=== PATIENT | female | born 1985 | race Caucasian/White ===

== ENCOUNTER → 2018-05-25 15:14 | Outpatient (CLI) | payer SELFPAY ==
[2018-05-25 17:45] LABS: Hematocrit 35.9 % (37-47); Hemoglobin 12.1 g/dl (12.0-15.0); Mean Corp Hgb Conc 33.7 g/gl (32-36); Mean Corpuscular Hgb 29.3 pg (27.0-32.0); Mean Corpuscular Volume 86.9 fL (81-99); Mean Platelet Vol. 9.3 fl (6.2-12.0); Platelet Count 341 K/mm3 (150-450); RBC Distribution Width CV 12.4 % (11.6-14.6); RBC Distribution Width SD 38.5 fl (35.1-43.9); Red Blood Count 4.13 M/mm3 (4.2-5.4); White Blood Count 8.4 K/mm3 (4.4-11.0)
[2018-05-25 18:01] LABS: Ferritin 12 ng/mL (8-252); Free T3 2.4 pg/mL (2.18-3.98); Iron 36 ug/dL (50-170); Iron Binding Capacity,Total 398 ug/dL (250-450); Scan Indicated on CBC? Y/N NO; T4 Free Direct 0.77 ng/dL (0.76-1.46); Thyroid Stim Hormone (TSH) 0.78 uIU/mL (0.358-3.74)
[2018-05-26 10:00] LABS: Vitamin B12 607 pg/mL (211-911)
== END ==
PROVIDERS: Family Provider Family Medicine; PCP Family Medicine; Visit Provider Psychiatry & Neurology Psychiatry
DX: D64.9 Anemia, unspecified (principal); E03.9 Hypothyroidism, unspecified
CPT/HCPCS: 36415; 82607; 82728; 82746; 83540; 83550; 84439; 84443; 84481; 85027

== ENCOUNTER → 2018-06-23 11:42 | Outpatient (CLI) | payer SELFPAY ==
[2018-06-25 08:49] LABS: EBV Early Antigen IgG <9.0 U/mL (0.0-8.9); EBV-VCA IgG < 18.0 U/mL (0.0-17.9)
== END ==
PROVIDERS: Family Provider Family Medicine; PCP Family Medicine; Visit Provider Family Medicine
DX: R53.83 Other fatigue (principal)
CPT/HCPCS: 36415; 86663; 86665

== ENCOUNTER → 2018-06-26 13:57 | Outpatient (CLI) | payer SELFPAY ==
--- NOTE | 2018-06-26 13:59 | US_ITS ---
STUDY: THYROID ULTRASOUND REASON FOR EXAM: Female, 33 years old. Goiter TECHNIQUE: Ultrasound evaluation of the thyroid was performed with real-time and static do-scale imaging. COMPARISON: None. FINDINGS: RIGHT LOBE: The right lobe of the thyroid gland measures 5.4 x 1.9 x 1.6 cm. There is a homogeneous echotexture. There are several hypoechoic subcentimeter nodules likely cystic in nature measuring between 2 to 6 mm. LEFT LOBE: The left lobe of the thyroid gland measures 5.2 x 2.1 x 1.5 cm. There is a homogeneous echotexture. There are several hypoechoic subcentimeter nodules likely cystic in nature measuring 2 to 3 mm. ISTHMUS: The isthmus measures 2 mm . There is a soft tissue 6 x 8 mm nodule superior to the left thyroid. US/Thyroid IMPRESSION: Small subcentimeter cystic nodules laterally of the thyroid. Subcentimeter soft tissue nodule superior to the left thyroid. Correlate with CT if needed. Electronically Signed: Reed Louise DO at 22:47 EDT Tel [phone], Service support ,
== END ==
PROVIDERS: Family Provider Family Medicine; PCP Family Medicine; Visit Provider Family Medicine
DX: E04.9 Nontoxic goiter, unspecified (principal)
CPT/HCPCS: 76536

== ENCOUNTER → 2019-01-09 14:22 | Outpatient (CLI) | payer OTHER, SELFPAY ==
[2019-01-09 13:22] VITALS: BMI 30.2
[2019-01-09 15:39] LABS: Uric Acid 3.3 mg/dL (2.6-6.0)
== END ==
PROVIDERS: Family Provider Family Medicine; PCP Family Medicine; Referring Provider Family Medicine; Visit Provider Family Medicine
DX: M79.676 Pain in unspecified toe(s) (principal); R23.2 Flushing; R61 Generalized hyperhidrosis
CPT/HCPCS: 36415; 84550

== ENCOUNTER → 2019-01-11 09:35 | Outpatient (CLI) | payer OTHER, SELFPAY ==
[2019-01-09 13:22] VITALS: BMI 30.2
[2019-01-17 09:37] LABS: Epinephrine, 24Ur 5 ug/24 hr (0-20); Norepinephrine, 24Ur 32 ug/24 hr (0-135); VMA, 24UR 2.1 mg/24 hr (0.0-7.5)
[2019-01-17 11:01] LABS: Dopamine, 24Ur 278 ug/24 hr (0-510); Dopamine, UR 105 ug/L (Undefined); Epinephrine, Ur 2 ug/L (Undefined); Norepinephrine, Ur 12 ug/L (Undefined); VMA, UR 0.8 mg/L (Undefined)
== END ==
PROVIDERS: Family Provider Family Medicine; PCP Family Medicine; Referring Provider Family Medicine; Visit Provider Family Medicine
DX: R23.2 Flushing (principal); R61 Generalized hyperhidrosis
CPT/HCPCS: 82384; 84585

== ENCOUNTER 2019-01-22 14:12 | Emergency (ER) | payer OTHER, SELFPAY ==
[2019-01-09 13:22] VITALS: BMI 30.2
[2019-01-22 14:13] VITALS: BP 127/73; PULSE 86; RESP 17; TEMP 36.9; O2SAT 97; BMI 29.6
[2019-01-22 15:17] LABS: Bacteria 0 SEEN /hpf (None Seen); Mucous, Urine 0 SEEN /hpf (<or=2+); Red Blood Cells-Urine 0 SEEN /hpf (0-5); White Blood Cells 0 SEEN /hpf (0-5)
[2019-01-22 15:35] LABS: Color, Urine Yellow (Yellow); Glucose, Dipstick Normal (Normal); Ketone-Dipstick Negative (Negative); Leukocyte Esterase-Dipstick Negative /ul (Negative); Nitrite-Dipstick Negative (Negative); Occult Blood-Urine 10 /ul (Negative); Protein-Dipstick Negative (Negative); Urine Bilirubin Dipstick Negative (Negative); Urine Clarity Clear (Clear); Urine Urobilinogen Normal (Normal)
[2019-01-22 15:39] LABS: Internal QC Validated? YES +Cl - CLEAR BKGD; Pregnancy, Urine Negative Negative
--- NOTE | 2019-01-22 15:45 | ED.VISSUMM ---
- ER Visit Summary Date of Service: 01/22/19 Chief Complaint: Right flank pain History of Present Illness: The patient is a [address] Robby Stoddard. She reports she has right flank pain began approximately 2 weeks ago. States that it seemed to improve, but is worsened again over the past few days. She describes a sharp pain is 9 out of 10 with movement and 1 out of 10 at rest. She denies any recent trauma. No fall, MVA, or change in activity. She denies any nausea or vomiting. She denies diarrhea today. She does report that she had diarrhea yesterday. No blood in her stools or black tarry stools. She had frequent urination, but no dysuria. Last menstrual period was 2 weeks ago. No personal history of kidney stones. Physical Examination: Vitals: Stable. Afebrile. General: Well-nourished and well-developed. Head: Normocephalic atraumatic. Neck: Supple, no lymphadenopathy. No JVD. Nontender. Cardiovascular: Regular rate and rhythm. No murmurs. Respiratory: No respiratory distress. Clear to auscultation bilaterally. Abdominal: Soft, nontender, nondistended, normal bowel sounds. No guarding, rebound, or peritoneal signs. Back: No vertebral tenderness. Mild right CVA tenderness. Extremities: Nontender, no edema. Skin: Normal color, no rash. Neurologic: Alert and oriented ?3. Cranial nerves II through XII are intact. Normal strength and sensation. Psych: Normal affect. Test Results: UA is negative. test is negative. Emergency Department Course and Treatment: Patient refused pain and nausea medications. She is resting comfortably. Treatment Plan: Patient be discharged with naproxen. Instructed to follow-up her primary care physician 1 week if not improving. Return to the emergency department for any worsening symptoms. Disposition: To home in improved and stable condition. Impression: 1. Right flank pain, uncertain cause. This note was generated with [employer] dictation software. It may contain incorrect words, spelling, and punctuation that were not noted in review of the chart prior to signing ED Disposition - Plan for ED Patient: Disposition: Home or Assisted Living Instructions: ED Flank Pain Uncertain Cause Prescriptions: Naproxen [Naprosyn] 500 mg PO BID #14 tablet Referrals: Robby Stoddard, DO [Primary Care Provider] - 3-5 Days if not improving
[2019-01-22 15:52] LABS: Squamous Epithelial Cells - UA 0-5 SEEN /hpf (5-10)
[2019-01-22 15:54] VITALS: PULSE 88; RESP 17; O2SAT 98
== END 2019-01-22 15:55 | disposition home or self-care (01) ==
LOC: ED 14:40
PROVIDERS: Emergency Provider Emergency Medicine; Family Provider Family Medicine; PCP Family Medicine
DX: R10.9 Unspecified abdominal pain (principal); R19.7 Diarrhea, unspecified; R35.0 Frequency of micturition; Z72.0 Tobacco use; F41.9 Anxiety disorder, unspecified; Z79.899 Other long term (current) drug therapy
CPT/HCPCS: 81001; 81025; 99282

== ENCOUNTER 2022-01-04 08:46 | Outpatient (CLI) | payer SELFPAY ==
[2022-01-04 09:55] LABS: Hematocrit 34.2 % (37-47); Hemoglobin 11.3 g/dL (12.0-15.0); Mean Corpuscular Hgb 28.3 pg (27.0-32.0); Mean Corpuscular Volume 85.7 fL (81-99); Mean Platelet Vol. 8.9 fl (6.2-12.0); Platelet Count 280 K/mm3 (150-450); RBC Distribution Width SD 39.8 fl (35.1-43.9); Red Blood Count 3.99 M/mm3 (4.2-5.4); White Blood Count 5.3 K/mm3 (4.4-11.0)
[2022-01-04 10:18] LABS: Ferritin 8 ng/mL (8-252); Iron 27 ug/dL (50-170); Iron Binding Capacity,Total 418 ug/dL (250-450); PERCENT IRON SATURATION 6.5 % (15.0-55.0); Thyroid Stim Hormone (TSH) 0.91 uIU/mL (0.358-3.74)
== END 2022-01-04 23:59 | disposition home or self-care (01) ==
PROVIDERS: PCP Family Medicine; Referring Provider Psychiatry & Neurology Psychiatry; Visit Provider Psychiatry & Neurology Psychiatry
DX: E61.1 Iron deficiency (principal); E03.9 Hypothyroidism, unspecified
CPT/HCPCS: 36415; 82728; 83540; 83550; 84443; 85027

== ENCOUNTER → 2023-10-04 | Outpatient (CLI) | payer SELFPAY ==
[2023-10-04 15:52] LABS: Anion Gap 5 (5-15); BUN 12 mg/dL (7-18); BUN/Creat Ratio 18.8 RATIO (10-20); Calcium,Total 9.2 mg/dL (8.5-10.1); Chloride 105 mmol/L (98-107); Creatinine, Serum 0.64 mg/dL (0.55-1.02); EST Glomerular Filtration Rate 110 mL/min (>60); Est Glom Filt Rate - Afr Amer 133 mL/min (>60); Glucose 152 mg/dL (74-106); Potassium 4.6 mmol/L (3.5-5.1); Sodium Level 141 mmol/L (136-145); T4 Free Direct 0.73 ng/dL (0.76-1.46); Thyroid Stim Hormone (TSH) 0.79 uIU/mL (0.358-3.74)
== END | disposition home or self-care (01) ==
LOC: BIMLAB 13:56
PROVIDERS: PCP Family Medicine; Referring Provider Family Medicine; Visit Provider Family Medicine
DX: R53.83 Other fatigue (principal)
CPT/HCPCS: 36415; 80048; 84439; 84443

== ENCOUNTER → 2023-10-24 | Outpatient (CLI) | payer OTHER, SELFPAY ==
--- OUTSIDE RECORDS SUMMARY | 2023-10-24 10:13 | XMS RPT_ITS | CCD ---
Author Name Unknown Address [address] [place] [address] Organization [facility] Care Team Providers Care Belt Picker Name Role Phone SHERALETHA ZAID E Unavailable Unavailable SHEROCK, ZAID E Unavailable Unavailable BROWN ANY R Unavailable Unavailable SHEROCK, ZAID E Unavailable Unavailable SHEROCK, ZAID E Unavailable Unavailable BROWN, ANY R Unavailable Unavailable BROWN, ANY R Unavailable Unavailable Problems Active Problems Problem Classification Problem Date Documented Da te Episodic/Chronic Unclassified (1 source) Unknown / UNK(Unknown) Onset: 04-21-2017 Past or Other Problems Problem Classification Problem Date Documented Da te Episodic/Chronic Unclassified (1 source) NONREACTIVE NST OBLIQUE LIE Onset: 04-21-2017 Results Test Name Value Interpretation Reference Range Facil ity Encounters Encounter Date Encounter Type Care Provider Facility Start: 04-23-2017 End: 04-25-2017 Evaluation and management of inpatient ZAID EASTMAN Facility:[facility] Start: 04-21-2017 End: 04-21-2017 Ambulatory ZAID EASTMAN Facility:[facility] [place] Summary Purpose Family History No Family History Records FoundNo Family History Records Found Advance Directives No Advanced Directives Records FoundNo Advanced Directives Records Found Additional Source Comments INFORMATION SOURCE (unrecogn ized section and content) DATE CREATED AUTHOR AUTHOR'S ORGANIZ ATION 04/12/2018 [facility] FOR RECORDS PERTAINING TO PATIENTS WHO ARE OR HAVE BEEN ENROLLED IN A CHEMICAL DEPENDENCY/SUBSTANCEABUSE PROGRAM, SOME INFORMATION MAY BE OMITTED. This clinical summary was aggregated from multiple sources. Caution should be exercised in using it in the provision of clinical care. This summary normalizes information from multiple sources, and as a consequence, information in this document may materially change the coding, format and clinical context of patient data. In addition, data may be omitted in some cases. CLINICAL DECISIONS SHOULD BE BASED ON THE PRIMARY CLINICAL RECORDS. [facility] [employer] [facility]. provides no warranty or guarantee of the accuracy or completeness of information in this document.
[2023-10-24 14:13] LABS: Hemoglobin A1c 5.6 % (3.8-5.6)
== END | disposition home or self-care (01) ==
PROVIDERS: PCP Family Medicine; Referring Provider Family Medicine; Visit Provider Family Medicine
DX: R73.9 Hyperglycemia, unspecified (principal)
CPT/HCPCS: 36415; 83036

== ENCOUNTER → 2024-08-14 | Outpatient (CLI) | payer OTHER, SELFPAY ==
[2024-08-14 15:18] LABS: Absolute Lymphocyte Count 3.33 X10^3/uL (0.83-4.51); Absolute Neutrophil Count 5.7 X10^3/uL (2.0-7.7); Basophil# 0.06 X10^3/uL; Basophil% 0.6 % (0-1); Eosinophil# 0.16 X10^3/uL; Eosinophils% 1.7 % (0-5); Hematocrit 35.4 % (37-47); Hemoglobin 11.3 g/dL (12.0-15.0); Lymphocyte # 3.33 X10^3/ul (0.83-4.51); Lymphocyte % 34.5 % (19-41); Mean Corp Hgb Conc 31.9 g/dL (32-36); Mean Corpuscular Hgb 27.3 pg (27.0-32.0); Mean Corpuscular Volume 85.5 fL (81-99); Monocyte# 0.39 X10^3/uL; NRBC Flagged by Analyzer 0 % (0-5); Platelet Count 395 K/mm3 (150-450); RBC Distribution Width CV 13.7 % (11.6-14.6); RBC Distribution Width SD 42.6 fl (35.1-43.9); Red Blood Count 4.14 M/mm3 (4.2-5.4); White Blood Count 9.7 K/mm3 (4.4-11.0)
--- OUTSIDE RECORDS SUMMARY | 2024-08-14 19:20 | XMS RPT_ITS | CCD ---
Author Organization [facility] Care Team Providers Care Coordinate Measuring Machine Programmer Name Role Phone MIAH EASTMAN Unavailable Unavailable SHERPERRY POMPAS E Unavailable Unavailable ANY FRANCISCO R Unavailable Unavailable SHERMIAH POMPA E Unavailable Unavailable SHERALETHA, MIAH E Unavailable Unavailable BROWNYOANNAANY R Unavailable Unavailable BROWNYOANNAANY R Unavailable Unavailable Problems Active Problems Problem Classification Problem Date Documented Da te Episodic/Chronic Unclassified (1 source) Unknown / UNK(Unknown) Onset: 04-21-2017 Past or Other Problems Problem Classification Problem Date Documented Da te Episodic/Chronic Unclassified (1 source) NONREACTIVE NST OBLIQUE LIE Onset: 04-21-2017 Results Test Name Value Interpretation Reference Range Facil ity [facility] OB Surgery Anesthesia Re cordon 05-16-2017 [facility] Surgery Anesthesia Record Normal [facility] [place] Depart Summaryon 04-25-2017 Depart Summary Normal [facility] Discharge Summaryon 04-25-2017 [place] Discharge Summary Normal [facility] Inp [facility]ient [place] 04-25-2017 [place] [facility] [place] Normal [facility] CBC (AO)on 04-24-2017 Basophils Auto #/vol (Bld) 0.10 10 3/mcL Normal 0.00-0.19 [facility] Comment on above: Order Comment: CBN AM Draw Performed By: #### C BCO ####[place] [address] [address] Basophils/100 WBC Auto (Bld) 0.5 % Normal 0.0-2.5 [facility] Comment on above: Order Comment: CBN AM Draw Performed By: #### C BCO ####[address] [address] Eosinophils 0.10 10 3/mcL Normal 0.00-0.40 [facility] Comment on above: Order Comment: CBN AM Draw Performed By: #### C BCO ####[address] [address] Eosinophils/100 leukocytes 0.9 % Normal 0.0-7.0 [facility] Comment on above: Order Comment: CBN AM Draw Performed By: #### C BCO ####[place] [id number] Erythrocyte distribution width Auto Ratio (RBC) 13.1 % Normal 11.5-14.5 [facility] Comment on above: Order Comment: CBN AM Draw Performed By: #### C BCO ####[address] [address] Erythrocytes (RBC) 3.55 10 6/mcL Low 4.20-5.40 [facility] Comment on above: Order Comment: CBN AM Draw Performed By: #### C BCO ####[address] [address] Hematocrit (HCT) 32.1 % Low 37.0-47.0 [facility] Comment on above: Order Comment: CBN AM Draw Performed By: #### C BCO ####[address] [address] Hemoglobin mass conc (Bld) 10.7 G/dL Low 12.0-16.0 [facility] Comment on above: Order Comment: CBN AM Draw Performed By: #### C BCO ####[address] [address] Lymphocytes 1.70 10 3/mcL Normal 0.77-3.85 [facility] Comment on above: Order Comment: CBN AM Draw Performed By: #### C BCO ####[address] [address] Lymphocytes/100 leukocytes 14.4 % Normal 10.0-50.0 [facility] Comment on above: Order Comment: CBN AM Draw Performed By: #### C BCO ####[place] [address] [address] MCH 30.2 pg Normal 27.0-31.2 [facility] Comment on above: Order Comment: CBN AM Draw Performed By: #### C BCO ####[place] [address] [address] MCHC mass conc (RBC) 33.4 G/dL Normal 33.0-37.0 [facility] Comment on above: Order Comment: CBN AM Draw Performed By: #### C BCO ####[address] [address] MCV 90.5 fL Normal 80.0-94.0 [facility] Comment on above: Order Comment: CBN AM Draw Performed By: #### C BCO ####[address] [address] Monocytes 0.70 10 3/mcL Normal 0.15-1.00 [facility] Comment on above: Order Comment: CBN AM Draw Performed By: #### C BCO ####[address] [address] Monocytes/100 leukocytes 5.9 % Normal 1.7-13.0 [facility] Comment on above: Order Comment: CBN AM Draw Performed By: #### C BCO ####[address] [address] Neutrophils 9.10 10 3/mcL High 2.85-6.16 [facility] Comment on above: Order Comment: CBN AM Draw Performed By: #### C BCO ####[address] [address] Neutrophils/100 WBC Auto (Bld) 78.3 % Normal 37.0-80.0 [facility] Comment on above: Order Comment: CBN AM Draw Performed By: #### C BCO ####[address] [address] Platelet mean volume (PMV) 7.6 fL Normal 7.4-10.4 [facility] Comment on above: Order Comment: CBN AM Draw Performed By: #### C BCO ####[place] [address] [address] Platelets 208 10 3/mcL Normal 130-400 [facility] Comment on above: Order Comment: CBN AM Draw Performed By: #### C BCO ####[address] [address] WBC (Leukocytes) 11.60 10 3/mcL High 4.60-10.80 [facility] Comment on above: Order Comment: CBN AM Draw Performed By: #### C BCO ####[address] [address] /Maternal Hemorrhage Sc reenon 04-24-2017 /Maternal Hemorrhage Screen Negative Normal [facility] Comment on above: Performed By: #### F MHO ####[address] [address] [place] Operative Reporton 04-24-2017 [place] Operative Report Normal [facility] OB Surgery Anesthesia Re cordon 04-23-2017 [facility] OB Surgery Anesthesia Record Normal [facility] OB Surgery Intraop Recor don 04-23-2017 [facility] OB Surgery Intraop Record Normal [facility] CBC (AO)on 04-23-2017 Basophils Auto #/vol (Bld) 0.00 10 3/mcL Normal 0.00-0.19 [facility] Comment on above: Order Comment: CBN Performed By: #### C BCO ####[address] [address] Basophils/100 WBC Auto (Bld) 0.4 % Normal 0.0-2.5 [facility] Comment on above: Order Comment: CBN Performed By: #### C BCO ####[address] [address] Eosinophils 0.10 10 3/mcL Normal 0.00-0.40 [facility] Comment on above: Order Comment: CBN Performed By: #### C BCO ####[place] [id number] Eosinophils/100 leukocytes 0.7 % Normal 0.0-7.0 [facility] Comment on above: Order Comment: CBN Performed By: #### C BCO ####[address] [address] Erythrocyte distribution width Auto Ratio (RBC) 12.9 % Normal 11.5-14.5 [facility] Comment on above: Order Comment: CBN Performed By: #### C BCO ####[address] [address] Erythrocytes (RBC) 4.18 10 6/mcL Low 4.20-5.40 [facility] Comment on above: Order Comment: CBN Performed By: #### C BCO ####[address] [address] Hematocrit (HCT) 36.7 % Low 37.0-47.0 [facility] Comment on above: Order Comment: CBN Performed By: #### C BCO ####[address] [address] Hemoglobin mass conc (Bld) 12.6 G/dL Normal 12.0-16.0 [facility] Comment on above: Order Comment: CBN Performed By: #### C BCO ####[address] [address] Lymphocytes 2.10 10 3/mcL Normal 0.77-3.85 [facility] Comment on above: Order Comment: CBN Performed By: #### C BCO ####[address] [address] Lymphocytes/100 leukocytes 21.6 % Normal 10.0-50.0 [facility] Comment on above: Order Comment: CBN Performed By: #### C BCO ####[address] [address] MCH 30.2 pg Normal 27.0-31.2 [facility] Comment on above: Order Comment: CBN Performed By: #### C BCO ####[address] [address] MCHC mass conc (RBC) 34.4 G/dL Normal 33.0-37.0 [facility] Comment on above: Order Comment: CBN Performed By: #### C BCO ####[address] [address] MCV 87.8 fL Normal 80.0-94.0 [facility] Comment on above: Order Comment: CBN Performed By: #### C BCO ####[address] [address] Monocytes 0.50 10 3/mcL Normal 0.15-1.00 [facility] Comment on above: Order Comment: CBN Performed By: #### C BCO ####[address] [address] Monocytes/100 leukocytes 4.8 % Normal 1.7-13.0 [facility] Comment on above: Order Comment: CBN Performed By: #### C BCO ####[address] [address] Neutrophils 6.90 10 3/mcL High 2.85-6.16 [facility] Comment on above: Order Comment: CBN Performed By: #### C BCO ####[place] [address] [address] Neutrophils/100 WBC Auto (Bld) 72.5 % Normal 37.0-80.0 [facility] Comment on above: Order Comment: CBN Performed By: #### C BCO ####[place] [address] [address] Platelet mean volume (PMV) 7.4 fL Normal 7.4-10.4 [facility] Comment on above: Order Comment: CBN Performed By: #### C BCO ####[address] [address] Platelets 214 10 3/mcL Normal 130-400 [facility] Comment on above: Order Comment: CBN Performed By: #### C BCO ####[address] [address] WBC (Leukocytes) 9.50 10 3/mcL Normal 4.60-10.80 [facility] Comment on above: Order Comment: CBN Performed By: #### C BCO ####[address] [address] [place] History and Physica florencia 04-23-2017 [place] History and Physical Normal [facility] TYPE AND SCREENon 04-23-2017 AB Screen/Indirect AHG Negative Normal [facility] Comment on above: Performed By: #### T SO ####[address] [address] ABO/RH TYPE Negative Normal [facility] Comment on above: Performed By: #### T SO ####[address] [address] Depart Summaryon 04-21-2017 Depart Summary Normal [facility] Inp [facility]ient [place] 04-21-2017 [place] [facility] [place] Normal [facility] US BIOPHYSICAL PROFILEon US BIOPHYSICAL PROFILE ORIGINAL OBSTETRICS REPORT (Signed Final 04/21/2017 01:16 pm) -------Patient Info ID #: [id number] : [birth year] (31 yrs)(F) Name: MARLENE ZACARIAS Visit Date: 04/21/2017 01:05 pm ------Performed By Performed By: Rosemary Torres RDMS Referred By: Miah Eastman MD Location: [facility] [place] Indication s decreased movement Evaluation Num Of Fetuses: 1 Preg. Location: Intrauterine Heart Rate: 141 bpm Cardiac Activity: Observed Presentation: Breech Placenta: Anterior, Grade 2 Amniotic Fluid ROSARIO FV: Within Normal Limits ROSARIO Sum: 16.37 cm Larg Pckt: 6.1 cm RUQ: 5.58 cm LUQ: 6.1 cm RLQ: 3.69 cm LLQ: 1 cm ------Biophysical Evaluation Amniotic F.V: Pocket => 2 cm two F. Tone: Observed planes F. Movement: Not Observed Score: 03/24 F. Breathing: Observed Biometry ----Gestational Age LMP: 39w 0d Date: 07/22/16 RAYMOND: 04/28/17 Best: 39w 0d Det. By: Darnell Lindsey RAYMOND: 04/28/17 (09/02/16) Impressi on Single live intrauterine gestation. Biophysical profile score is 6 out of 8 points. No movement is observed over 30 minutes of observation. Thank you for sharing in the care of Ms. MARLENE E ZACARIAS with us. Please do not hesitate to contact us if you have any questions or concerns. Reji Elder MDElectronically Signed Final Report 04/21/2017 01:16 pm Normal [facility] Encounters Encounter Date Encounter Type Care Provider Facility Start: 04-23-2017 End: 04-25-2017 Evaluation and management of inpatient MIAH EASTMAN Facility:[facility] Start: 04-21-2017 End: 04-21-2017 Ambulatory MIAH EASTMAN Facility:[facility] [place] Summary Purpose Family History No Family History Records FoundNo Family History Records Found Advance Directives No Advanced Directives Records FoundNo Advanced Directives Records Found Additional Source Comments INFORMATION SOURCE (unrecogn ized section and content) DATE CREATED AUTHOR 04/12/2018 [facility] ([place]) DATE CREATED AUTHOR AUTHOR'S ORGANIZ ATION 04/12/2018 [facility] FOR RECORDS PERTAINING TO PATIENTS [...] BE BASED ON THE PRIMARY CLINICAL RECORDS. [employer] provides no warranty or guarantee of the accuracy or completeness of information in this document.
== END | disposition home or self-care (01) ==
LOC: BIMLAB 13:51
PROVIDERS: PCP Family Medicine; Referring Provider Family Medicine; Visit Provider Family Medicine
DX: D64.9 Anemia, unspecified (principal); R73.9 Hyperglycemia, unspecified
CPT/HCPCS: 36415; 83036; 85025

== ENCOUNTER → 2025-10-07 | Outpatient (CLI) | payer OTHER, SELFPAY ==
[2025-10-07 15:24] LABS: Hematocrit 35.1 % (37-47); Hemoglobin 11.7 g/dL (12.0-15.0); Immature Granulocytes Count 0.020 X10^3/uL (0.0-0.0); Mean Corp Hgb Conc 33.3 g/dL (32-36); Mean Corpuscular Volume 86.0 fL (81-99); Mean Platelet Vol. 9.1 fl (6.2-12.0); NRBC Flagged by Analyzer 0 % (0-5); Platelet Count 370 K/mm3 (150-450); RBC Distribution Width CV 12.5 % (11.6-14.6); RBC Distribution Width SD 39.4 fl (35.1-43.9); Red Blood Count 4.08 M/mm3 (4.2-5.4); White Blood Count 8.9 K/mm3 (4.4-11.0)
== END | disposition home or self-care (01) ==
LOC: MTLAB 13:24
PROVIDERS: PCP Family Medicine; Referring Provider Family Medicine; Visit Provider Family Medicine
DX: D64.9 Anemia, unspecified (principal)
CPT/HCPCS: 36415; 84443; 85025